=== PATIENT | female | born 1975 | race Two or more races ===

== ENCOUNTER → 2021-05-21 | Emergency (ER) | payer OTHER ==
[~2021-05-21] VITALS: Ht 152.4 cm; Wt 58.1 kg
== END | disposition home or self-care (01) ==
LOC: EMR PED 08:46 → ER 08:51 → EMR PED 08:51
DX: M79.604 Pain in right leg (principal); I80.221 Phlebitis and thrombophlebitis of right popliteal vein; I87.2 Venous insufficiency (chronic) (peripheral)

== ENCOUNTER 2021-05-31 07:09 | Outpatient (CLI) | payer OTHER | END 2021-05-31 07:16 | disposition home or self-care (01) | LOC: LAB 07:09 | DX: N93.8 Other specified abnormal uterine and vaginal bleeding (principal) ==

== ENCOUNTER 2021-07-15 07:36 | Outpatient (CLI) | payer OTHER | END 2021-07-15 07:37 | disposition home or self-care (01) | LOC: LAB 07:36 | PROVIDERS: ATTEND General Practice | DX: Z20.828 Contact with and (suspected) exposure to other viral communicable diseases (principal) ==

== ENCOUNTER 2021-07-22 07:32 | Outpatient (CLI) | payer OTHER | END 2021-07-22 07:33 | disposition home or self-care (01) | LOC: LAB 07:32 | PROVIDERS: ATTEND General Practice | DX: Z20.828 Contact with and (suspected) exposure to other viral communicable diseases (principal) ==

== ENCOUNTER → 2021-07-29 06:30 | Outpatient (CLI) | payer OTHER | END | disposition home or self-care (01) | LOC: LAB 06:30 | PROVIDERS: ATTEND General Practice | DX: Z20.828 Contact with and (suspected) exposure to other viral communicable diseases (principal) ==

== ENCOUNTER 2021-08-05 06:45 | Outpatient (CLI) | payer OTHER | END 2021-08-05 06:50 | disposition home or self-care (01) | LOC: LAB 06:45 | PROVIDERS: ATTEND General Practice | DX: Z20.828 Contact with and (suspected) exposure to other viral communicable diseases (principal) ==

== ENCOUNTER 2021-08-12 06:36 | Outpatient (CLI) | payer OTHER | END 2021-08-12 06:39 | disposition home or self-care (01) | LOC: LAB 06:36 | PROVIDERS: ATTEND General Practice | DX: Z20.828 Contact with and (suspected) exposure to other viral communicable diseases (principal) ==

== ENCOUNTER 2021-08-26 07:26 | Outpatient (CLI) | payer OTHER | END 2021-08-26 07:32 | disposition home or self-care (01) | LOC: LAB 07:26 | DX: Z20.828 Contact with and (suspected) exposure to other viral communicable diseases (principal) ==

== ENCOUNTER → 2021-09-02 06:53 | Outpatient (CLI) | payer OTHER | END | disposition home or self-care (01) | LOC: LAB 06:53 | PROVIDERS: ATTEND General Practice | DX: Z20.828 Contact with and (suspected) exposure to other viral communicable diseases (principal) ==

== ENCOUNTER 2021-09-09 06:50 | Outpatient (CLI) | payer OTHER | END 2021-09-09 06:57 | disposition home or self-care (01) | LOC: LAB 06:50 | PROVIDERS: ATTEND General Practice | DX: Z20.828 Contact with and (suspected) exposure to other viral communicable diseases (principal) ==

== ENCOUNTER 2021-09-16 06:45 | Outpatient (CLI) | payer OTHER | END 2021-09-16 06:52 | disposition home or self-care (01) | LOC: LAB 06:45 | PROVIDERS: ATTEND General Practice | DX: Z20.828 Contact with and (suspected) exposure to other viral communicable diseases (principal) ==

== ENCOUNTER 2021-09-23 07:11 | Outpatient (CLI) | payer OTHER | END 2021-09-23 07:19 | disposition home or self-care (01) | LOC: LAB 07:11 | PROVIDERS: ATTEND General Practice | DX: E11.9 Type 2 diabetes mellitus without complications (principal); E07.9 Disorder of thyroid, unspecified; E78.5 Hyperlipidemia, unspecified; N39.0 Urinary tract infection, site not specified; J06.9 Acute upper respiratory infection, unspecified; Z13.9 Encounter for screening, unspecified; Z20.828 Contact with and (suspected) exposure to other viral communicable diseases ==

== ENCOUNTER 2021-09-25 07:36 | Outpatient (CLI) | payer OTHER | END 2021-09-25 07:45 | disposition home or self-care (01) | LOC: LAB 07:36 | PROVIDERS: ATTEND General Practice | DX: A49.3 Mycoplasma infection, unspecified site (principal); Z20.828 Contact with and (suspected) exposure to other viral communicable diseases; J11.1 Influenza due to unidentified influenza virus with other respiratory manifestations ==

== ENCOUNTER 2021-10-01 10:20 | Outpatient (CLI) | payer OTHER | END 2021-10-01 11:51 | disposition home or self-care (01) | LOC: LAB 10:20 | PROVIDERS: ATTEND General Practice | DX: E07.9 Disorder of thyroid, unspecified (principal); E11.9 Type 2 diabetes mellitus without complications; E78.5 Hyperlipidemia, unspecified; N39.0 Urinary tract infection, site not specified; J06.9 Acute upper respiratory infection, unspecified; Z13.9 Encounter for screening, unspecified ==

== ENCOUNTER 2021-10-07 06:55 | Outpatient (CLI) | payer OTHER | END 2021-10-07 06:58 | disposition home or self-care (01) | LOC: LAB 06:55 | PROVIDERS: ATTEND General Practice | DX: Z20.828 Contact with and (suspected) exposure to other viral communicable diseases (principal) ==

== ENCOUNTER 2021-10-14 06:47 | Outpatient (CLI) | payer OTHER | END 2021-10-14 06:50 | disposition home or self-care (01) | LOC: LAB 06:47 | DX: Z20.828 Contact with and (suspected) exposure to other viral communicable diseases (principal) ==

== ENCOUNTER 2021-10-22 06:54 | Outpatient (CLI) | payer OTHER | END 2021-10-22 15:57 | disposition home or self-care (01) | LOC: LAB 06:54 | PROVIDERS: ATTEND General Practice | DX: Z20.828 Contact with and (suspected) exposure to other viral communicable diseases (principal) ==

== ENCOUNTER 2021-10-28 07:25 | Outpatient (CLI) | payer OTHER | END 2021-10-28 07:30 | disposition home or self-care (01) | LOC: LAB 07:25 | PROVIDERS: ATTEND General Practice | DX: Z20.828 Contact with and (suspected) exposure to other viral communicable diseases (principal) ==

== ENCOUNTER 2021-10-28 07:53 | Outpatient (CLI) | payer OTHER | END 2021-10-28 07:54 | disposition home or self-care (01) | LOC: NUCLEAR 07:53 | PROVIDERS: ATTEND General Practice | DX: M79.604 Pain in right leg (principal); R60.0 Localized edema; Z88.0 Allergy status to penicillin ==

== ENCOUNTER 2021-11-04 06:44 | Outpatient (CLI) | payer OTHER | END 2021-11-04 06:54 | disposition home or self-care (01) | LOC: LAB 06:44 | DX: Z20.828 Contact with and (suspected) exposure to other viral communicable diseases (principal); J02.8 Acute pharyngitis due to other specified organisms ==

== ENCOUNTER 2021-11-04 11:08 | Outpatient (CLI) | payer OTHER | END 2021-11-04 11:21 | disposition home or self-care (01) | LOC: MAMO-SONO 11:08 | DX: N64.4 Mastodynia (principal); D25.9 Leiomyoma of uterus, unspecified ==

== ENCOUNTER 2021-11-11 06:59 | Outpatient (CLI) | payer OTHER | END 2021-11-11 07:08 | disposition home or self-care (01) | LOC: LAB 06:59 | DX: Z20.828 Contact with and (suspected) exposure to other viral communicable diseases (principal) ==

== ENCOUNTER → 2021-11-18 07:00 | Outpatient (CLI) | payer OTHER | END | disposition home or self-care (01) | LOC: LAB 07:00 | DX: Z20.828 Contact with and (suspected) exposure to other viral communicable diseases (principal) ==

== ENCOUNTER 2021-11-19 12:40 | Outpatient (CLI) | payer OTHER | END 2021-11-19 12:47 | disposition home or self-care (01) | LOC: SONOGRAMA 12:40 | PROVIDERS: ATTEND General Practice | DX: R31.9 Hematuria, unspecified (principal); R10.2 Pelvic and perineal pain ==

== ENCOUNTER 2021-11-26 07:20 | Outpatient (CLI) | payer OTHER | END 2021-11-26 07:21 | disposition home or self-care (01) | LOC: LAB 07:20 | PROVIDERS: ATTEND Urology | DX: R31.21 Asymptomatic microscopic hematuria (principal); Z20.822 Contact with and (suspected) exposure to COVID-19 ==

== ENCOUNTER 2021-12-02 06:49 | Outpatient (CLI) | payer OTHER | END 2021-12-02 06:51 | disposition home or self-care (01) | LOC: LAB 06:49 | PROVIDERS: ATTEND Urology | DX: Z20.828 Contact with and (suspected) exposure to other viral communicable diseases (principal) ==

== ENCOUNTER 2021-12-09 06:51 | Outpatient (CLI) | payer OTHER | END 2021-12-09 06:52 | disposition home or self-care (01) | LOC: LAB 06:51 | PROVIDERS: ATTEND Urology | DX: Z20.828 Contact with and (suspected) exposure to other viral communicable diseases (principal) ==

== ENCOUNTER → 2021-12-16 | Outpatient (CLI) | payer OTHER | END | disposition home or self-care (01) | LOC: LAB 07:37 | PROVIDERS: ATTEND General Practice | DX: Z20.828 Contact with and (suspected) exposure to other viral communicable diseases (principal) ==

== ENCOUNTER 2021-12-23 06:42 | Outpatient (CLI) | payer OTHER | END 2021-12-23 06:45 | disposition home or self-care (01) | LOC: LAB 06:42 | PROVIDERS: ATTEND General Practice | DX: Z20.828 Contact with and (suspected) exposure to other viral communicable diseases (principal) ==

== ENCOUNTER 2021-12-30 07:28 | Outpatient (CLI) | payer OTHER | END 2021-12-30 07:35 | disposition home or self-care (01) | LOC: LAB 07:28 | PROVIDERS: ATTEND General Practice | DX: Z20.828 Contact with and (suspected) exposure to other viral communicable diseases (principal) ==

== ENCOUNTER 2022-01-06 07:08 | Outpatient (CLI) | payer OTHER | END 2022-01-06 07:13 | disposition home or self-care (01) | LOC: LAB 07:08 | PROVIDERS: ATTEND General Practice | DX: Z20.828 Contact with and (suspected) exposure to other viral communicable diseases (principal) ==

== ENCOUNTER 2022-01-13 06:43 | Outpatient (CLI) | payer OTHER | END 2022-01-13 07:05 | disposition home or self-care (01) | LOC: LAB 06:43 | PROVIDERS: ATTEND General Practice | DX: Z20.828 Contact with and (suspected) exposure to other viral communicable diseases (principal) ==

== ENCOUNTER 2022-01-20 07:27 | Outpatient (CLI) | payer OTHER | END 2022-01-20 07:36 | disposition home or self-care (01) | LOC: LAB 07:27 | PROVIDERS: ATTEND General Practice | DX: Z20.828 Contact with and (suspected) exposure to other viral communicable diseases (principal) ==

== ENCOUNTER 2022-01-22 07:40 | Outpatient (CLI) | payer OTHER | END 2022-01-22 13:02 | disposition home or self-care (01) | LOC: LAB 07:40 | PROVIDERS: ATTEND Internal Medicine Hematology & Oncology | DX: A49.1 Streptococcal infection, unspecified site (principal); R87.5 Abnormal microbiological findings in specimens from female genital organs ==

== ENCOUNTER 2022-01-28 07:07 | Outpatient (CLI) | payer OTHER | END 2022-01-28 07:45 | disposition home or self-care (01) | LOC: LAB 07:07 | PROVIDERS: ATTEND Internal Medicine Hematology & Oncology | DX: D50.8 Other iron deficiency anemias (principal); R79.9 Abnormal finding of blood chemistry, unspecified; I10 Essential (primary) hypertension; R74.02 Elevation of levels of lactic acid dehydrogenase [LDH]; K76.89 Other specified diseases of liver; C50.919 Malignant neoplasm of unspecified site of unspecified female breast; R97.8 Other abnormal tumor markers; C56.9 Malignant neoplasm of unspecified ovary; R97.1 Elevated cancer antigen 125 [CA 125]; R97.0 Elevated carcinoembryonic antigen [CEA]; E23.0 Hypopituitarism; R89.1 Abnormal level of hormones in specimens from other organs, systems and tissues; D51.3 Other dietary vitamin B12 deficiency anemia; N80.0 Endometriosis of uterus; I80.221 Phlebitis and thrombophlebitis of right popliteal vein; Z20.828 Contact with and (suspected) exposure to other viral communicable diseases ==

== ENCOUNTER 2022-02-03 06:57 | Outpatient (CLI) | payer OTHER | END 2022-02-03 06:58 | disposition home or self-care (01) | LOC: LAB 06:57 | PROVIDERS: ATTEND General Practice | DX: Z20.828 Contact with and (suspected) exposure to other viral communicable diseases (principal) ==

== ENCOUNTER 2022-02-05 08:00 | Outpatient (CLI) | payer OTHER | END 2022-02-05 08:05 | disposition home or self-care (01) | LOC: PPH VACUNA 08:00 | PROVIDERS: ATTEND Emergency Medicine Pediatric Emergency Medicine | DX: Z23 Encounter for immunization (principal) ==

== ENCOUNTER 2022-02-10 06:24 | Outpatient (CLI) | payer OTHER | END 2022-02-10 06:25 | disposition home or self-care (01) | LOC: LAB 06:24 | PROVIDERS: ATTEND General Practice | DX: Z20.828 Contact with and (suspected) exposure to other viral communicable diseases (principal) ==

== ENCOUNTER 2022-02-17 07:11 | Outpatient (CLI) | payer OTHER | END 2022-02-17 07:16 | disposition home or self-care (01) | LOC: LAB 07:11 | PROVIDERS: ATTEND General Practice | DX: Z20.828 Contact with and (suspected) exposure to other viral communicable diseases (principal) ==

== ENCOUNTER 2022-02-18 10:36 | Outpatient (CLI) | payer OTHER | END 2022-02-18 10:43 | disposition home or self-care (01) | LOC: TOM 10:36 | PROVIDERS: ATTEND Obstetrics & Gynecology | DX: R19.00 Intra-abdominal and pelvic swelling, mass and lump, unspecified site (principal); R19.07 Generalized intra-abdominal and pelvic swelling, mass and lump | CPT/HCPCS: 72197 ==

== ENCOUNTER 2022-02-24 07:02 | Outpatient (CLI) | payer OTHER | END 2022-02-24 07:07 | disposition home or self-care (01) | LOC: LAB 07:02 | PROVIDERS: ATTEND General Practice | DX: Z20.828 Contact with and (suspected) exposure to other viral communicable diseases (principal) ==

== ENCOUNTER 2022-03-03 07:01 | Outpatient (CLI) | payer OTHER | END 2022-03-03 07:07 | disposition home or self-care (01) | LOC: LAB 07:01 | PROVIDERS: ATTEND General Practice | DX: Z20.828 Contact with and (suspected) exposure to other viral communicable diseases (principal) ==

== ENCOUNTER 2022-06-02 12:46 | Outpatient (CLI) | payer OTHER | END 2022-06-02 12:47 | disposition home or self-care (01) | LOC: LAB 12:46 | PROVIDERS: ATTEND Internal Medicine Gastroenterology | DX: Z11.52 Encounter for screening for COVID-19 (principal); Z20.822 Contact with and (suspected) exposure to COVID-19; Z20.828 Contact with and (suspected) exposure to other viral communicable diseases ==

== ENCOUNTER 2022-07-01 06:58 | Outpatient (CLI) | payer OTHER | END 2022-07-01 07:00 | disposition home or self-care (01) | LOC: LAB 06:58 | PROVIDERS: ATTEND Internal Medicine Hematology & Oncology | DX: D50.8 Other iron deficiency anemias (principal); R79.9 Abnormal finding of blood chemistry, unspecified; I10 Essential (primary) hypertension; R74.02 Elevation of levels of lactic acid dehydrogenase [LDH]; K76.89 Other specified diseases of liver; D68.59 Other primary thrombophilia; D68.61 Antiphospholipid syndrome; D68.51 Activated protein C resistance; D51.3 Other dietary vitamin B12 deficiency anemia; N80.00 Endometriosis of the uterus, unspecified; I80.221 Phlebitis and thrombophlebitis of right popliteal vein; D68.62 Lupus anticoagulant syndrome; D68.312 Antiphospholipid antibody with hemorrhagic disorder; E72.11 Homocystinuria ==

== ENCOUNTER → 2022-07-21 | Outpatient (CLI) | payer OTHER | END | disposition home or self-care (01) | LOC: TOM 10:04 | PROVIDERS: ATTEND Internal Medicine Gastroenterology | DX: K56.600 Partial intestinal obstruction, unspecified as to cause (principal); Z86.010 Personal history of colon polyps ==

== ENCOUNTER → 2023-01-22 | Outpatient (CLI) | payer OTHER | END | disposition home or self-care (01) | LOC: PPH VACUNA | PROVIDERS: ATTEND Emergency Medicine Pediatric Emergency Medicine | DX: Z23 Encounter for immunization (principal) ==

== ENCOUNTER → 2023-02-13 07:48 | Outpatient (CLI) | payer OTHER ==
[2023-02-13 09:46] LABS: HEMATOCRIT 36.9 % (36.0-45.00); HEMOGLOBIN 12.4 g/dL (12.0-15.00); MEAN CELL VOLUME 83.4 fL (80.00-100.00); MEAN CORPUSCULAR HEMOGLOBIN 28.1 pg (27.00-32.0); MEAN CORPUSCULAR HGB CONC 33.7 g/dl (32.0-36.0); PLATELET COUNT 217 K/uL (150-450); RED BLOOD COUNT 4.42 M/uL (4.00-6.00); RED CELL DISTRIBUTION WIDTH 14.1 % (11.5-14.5)
[2023-02-13 10:21] LABS: ALBUMIN 3.6 gm/dL (3.4-5.0); BILIRUBIN TOTAL 0.28 mg/dL (0.3-1.2); BILIRUBIN,CONJUGATED 0.1 mg/dL (0.0-0.2); CALCIUM 9.9 mg/dL (8.5-10.1); CREATININE SERUM 0.67 mg/dL (0.55-1.02); GFR 93.94; GLOBULINA 3.8 G/DL (2.4-3.5); POTASSIUM 4.48 mEq/L (3.5-5.1); TOTAL PROTEIN 7.4 gm/dL (6.4-8.2)
[2023-02-13 11:20] LABS: VITAMIN D3 25 HYDROXY 38.71 ng/ml (30-120)
== END | disposition home or self-care (01) ==
LOC: LAB 07:48
PROVIDERS: ATTEND General Practice
DX: Z00.00 Encounter for general adult medical examination without abnormal findings (principal); E78.5 Hyperlipidemia, unspecified; E55.9 Vitamin D deficiency, unspecified; N39.0 Urinary tract infection, site not specified; R42 Dizziness and giddiness; R10.9 Unspecified abdominal pain

== ENCOUNTER 2023-04-03 09:54 | Outpatient (CLI) | payer OTHER | END 2023-04-03 09:55 | disposition home or self-care (01) | LOC: NUCLEAR 09:54 | PROVIDERS: ATTEND Internal Medicine Hematology & Oncology | DX: I80.221 Phlebitis and thrombophlebitis of right popliteal vein (principal); I70.213 Atherosclerosis of native arteries of extremities with intermittent claudication, bilateral legs; D51.3 Other dietary vitamin B12 deficiency anemia; N80.00 Endometriosis of the uterus, unspecified ==

== ENCOUNTER → 2023-06-19 07:45 | Outpatient (CLI) | payer OTHER ==
[2023-06-19 08:52] LABS: PH,URINE 5.5 (5.0-8.0); URINE APPEARANCE Clear; URINE BILIRRUBIN Negative (NEGATIVE); URINE BLOOD Small; URINE COLOR Yellow; URINE GLUCOSE Negative (NEGATIVE); URINE LEUKOCYTE Negative; URINE NITRATE Negative; URINE PROTEIN Negative (NEGATIVE); URINE UROBILINOGEN 0.2 E.U./dl
[2023-06-19 08:56] LABS: HEMATOCRIT 35.6 % (36.0-45.00); MEAN CORPUSCULAR HEMOGLOBIN 28.9 pg (27.00-32.0); MEAN CORPUSCULAR HGB CONC 33.7 g/dl (32.0-36.0); PLATELET COUNT 236 K/uL (150-450); RED BLOOD COUNT 4.14 M/uL (4.00-6.00); RED CELL DISTRIBUTION WIDTH 13.4 % (11.5-14.5); URINE EPITHELIAL CELLS 2.6 uL (0.0-38.8); URINE RBC 29.6 uL (0.0-20.8); URINE WBC 2.3 uL (0.0-23.2)
[2023-06-19 09:25] LABS: ALBUMIN 3.4 gm/dL (3.4-5.0); ALKALINE PHOSPHATASE 138 U/L (50-136); ALT/SGPT 35 U/L (12-78); ANION GAP 7 (10.0-20.0); AST/SGOT 19 U/L (15-37); BILIRUBIN TOTAL 0.32 mg/dL (0.3-1.2); BILIRUBIN,CONJUGATED < 0.10 mg/dL (0.0-0.2); BILIRUBIN,UNCONJUGATED 0.22 mg/dL (0.0-0.6); BLOOD UREA NITROGEN 15 mg/dL (7-18); BUN CREA RATIO 22 (7.0-25.0); CALCIUM 9.6 mg/dL (8.5-10.1); CARBON DIOXIDE 32 mEq/L (21-32); CHLORIDE 107 mmol/L (98-107); CHOL HDL RATIO 2.4 (0-5.0); CHOLESTEROL 201 mg/dL (0-200); CREATININE SERUM 0.68 mg/dL (0.55-1.02); GFR 92.35; GLOBULINA 3.6 G/DL (2.4-3.5); GLUCOSE FASTING 100 mg/dL (65-100); HDL 83 mg/dl (40-60); LDL 104 mg/dl (0-130); OSMOLALITY SERUM 284 MOSM/KG (275-295); POTASSIUM 4.24 mEq/L (3.5-5.1); SODIUM 142 mmol/L (136-145); T3 UPTAKE 31 % (30-39); T4 TOTAL 9.27 UG/DL (4.8-13.9); TRIGLYCERIDES 72 mg/dL (0-150); TSH 0.859 uIU/mL (0.358-3.74); VLDL 14 (0-39)
[2023-06-19 15:01] LABS: T3 TOTAL 1.05 ng/ml (0.846-2.02)
== END | disposition home or self-care (01) ==
LOC: LAB 07:45
PROVIDERS: ATTEND General Practice
DX: I10 Essential (primary) hypertension (principal); E78.5 Hyperlipidemia, unspecified; E55.9 Vitamin D deficiency, unspecified; N39.0 Urinary tract infection, site not specified; R42 Dizziness and giddiness; R10.9 Unspecified abdominal pain; Z00.00 Encounter for general adult medical examination without abnormal findings

== ENCOUNTER 2023-06-19 08:13 | Outpatient (CLI) | payer OTHER | END 2023-06-19 08:17 | disposition home or self-care (01) | LOC: RAD 08:13 | PROVIDERS: ATTEND General Practice | DX: M54.2 Cervicalgia (principal) ==

== ENCOUNTER 2023-11-19 08:39 | Outpatient (CLI) | payer OTHER ==
[2023-11-19 09:55] LABS: ALT/SGPT 27 U/L (12-78); AST/SGOT 18 U/L (15-37)
== END 2023-11-19 08:41 | disposition home or self-care (01) ==
LOC: LAB 08:39
DX: B35.1 Tinea unguium (principal)

== ENCOUNTER 2023-12-14 08:36 | Emergency (ER) | payer OTHER ==
[~2023-12-14] VITALS: Ht 160 cm; Wt 59.9 kg
[2023-12-14] MEDS ORDERED: PROPANOLOL (08:48)
[2023-12-14] MEDS ORDERED: PLAVIX75 MG (08:48)
[2023-12-14] MEDS ORDERED: KETOROLAC TROMETHAMINE 15 MG VIAL IM STA (09:12)
[2023-12-14] MEDS ORDERED: KETOROLAC TROMETHAMINE 30 MG VIAL ONE (09:19)
[2023-12-14] MEDS ORDERED: ADVIL DUAL ACT1 EACH PO (12:12)
== END 2023-12-14 12:23 | disposition home or self-care (01) ==
LOC: ER 08:36
DX: S93.402A Sprain of unspecified ligament of left ankle, initial encounter (principal); X58.XXXA Exposure to other specified factors, initial encounter; Y93.89 Activity, other specified; Y92.89 Other specified places as the place of occurrence of the external cause; Y99.9 Unspecified external cause status; Z88.0 Allergy status to penicillin; Z91.018 Allergy to other foods

== ENCOUNTER 2024-01-12 14:12 | Outpatient (CLI) | payer OTHER ==
[~2024-01-12 14:12] MED LIST: ADVIL DUAL ACT1 EACH PO; PLAVIX75 MG; PROPANOLOL
== END 2024-01-12 14:14 | disposition home or self-care (01) ==
LOC: LAB 14:12
PROVIDERS: ATTEND Preventive Medicine Occupational Medicine
DX: A49.1 Streptococcal infection, unspecified site (principal); A02.9 Salmonella infection, unspecified; K62.89 Other specified diseases of anus and rectum

== ENCOUNTER → 2024-01-27 07:07 | Outpatient (CLI) | payer OTHER ==
[2024-01-27 08:10] LABS: ALT/SGPT 28 U/L (12-78); AST/SGOT 20 U/L (15-37)
== END | disposition home or self-care (01) ==
LOC: LAB 07:07
DX: B35.1 Tinea unguium (principal)

== ENCOUNTER 2024-04-15 11:52 | Outpatient (CLI) | payer OTHER | END 2024-04-15 12:05 | disposition home or self-care (01) | LOC: PPH VACUNA 11:52 | PROVIDERS: ATTEND Emergency Medicine Pediatric Emergency Medicine | DX: Z23 Encounter for immunization (principal) ==

== ENCOUNTER 2024-04-18 09:03 | Outpatient (CLI) | payer OTHER | END 2024-04-18 09:07 | disposition home or self-care (01) | LOC: LAB 09:03 | DX: J11.1 Influenza due to unidentified influenza virus with other respiratory manifestations (principal); Z20.828 Contact with and (suspected) exposure to other viral communicable diseases ==

== ENCOUNTER → 2024-04-22 | Emergency (ER) | payer OTHER ==
[~2024-04-22] VITALS: Ht 160 cm; Wt 59.9 kg
[2024-04-22 15:39] LABS: HEMATOCRIT 36.7 % (36.0-45.00); HEMOGLOBIN 12.1 g/dL (12.0-15.00); MEAN CELL VOLUME 84.7 fL (80.00-100.00); MEAN CORPUSCULAR HEMOGLOBIN 27.9 pg (27.00-32.0); PLATELET COUNT 220 K/uL (150-450); RED BLOOD COUNT 4.33 M/uL (4.00-6.00); RED CELL DISTRIBUTION WIDTH 13.3 % (11.5-14.5)
[2024-04-22 15:59] LABS: INR 0.96; PROTHROMBIN TIME 10.5 SECONDS (9.0-11.5)
[2024-04-22 16:04] LABS: D DIMER 0.23 MG/L; PARTIAL THROMBOPLASTIN TIME 26.6 SECONDS (22.0-34.0)
== END | disposition home or self-care (01) ==
LOC: ER 12:28
PROVIDERS: Nurse Practitioner Family
DX: M79.605 Pain in left leg (principal); M26.629 Arthralgia of temporomandibular joint, unspecified side; Z20.822 Contact with and (suspected) exposure to COVID-19; Z88.0 Allergy status to penicillin; Z91.018 Allergy to other foods

== ENCOUNTER 2024-04-25 07:31 | Emergency (ER) | payer OTHER ==
[~2024-04-25] VITALS: Ht 160 cm; Wt 59.9 kg
[2024-04-25 12:03] LABS: HEMATOCRIT 36.7 % (36.0-45.00); HEMOGLOBIN 12.5 g/dL (12.0-15.00); MEAN CELL VOLUME 82.9 fL (80.00-100.00); MEAN CORPUSCULAR HEMOGLOBIN 28.2 pg (27.00-32.0); MEAN CORPUSCULAR HGB CONC 34.1 g/dl (32.0-36.0); PLATELET COUNT 236 K/uL (150-450); RED BLOOD COUNT 4.43 M/uL (4.00-6.00); RED CELL DISTRIBUTION WIDTH 13.8 % (11.5-14.5)
[2024-04-25 12:15] LABS: D DIMER 0.23 MG/L; INR 0.99; PARTIAL THROMBOPLASTIN TIME 26.6 SECONDS (22.0-34.0); PROTHROMBIN TIME 10.8 SECONDS (9.0-11.5)
== END 2024-04-25 14:34 | disposition home or self-care (01) ==
LOC: ER 07:33
PROVIDERS: General Practice
DX: M79.605 Pain in left leg (principal); Z88.0 Allergy status to penicillin; Z91.018 Allergy to other foods; Z86.72 Personal history of thrombophlebitis

== ENCOUNTER 2024-08-18 10:52 | Outpatient (CLI) | payer OTHER | END 2024-08-18 11:16 | disposition home or self-care (01) | LOC: MRI 10:52 | PROVIDERS: ATTEND Neuromusculoskeletal Medicine & OMM | DX: I72.9 Aneurysm of unspecified site (principal); I65.1 Occlusion and stenosis of basilar artery; I65.09 Occlusion and stenosis of unspecified vertebral artery; I65.29 Occlusion and stenosis of unspecified carotid artery; Q28.2 Arteriovenous malformation of cerebral vessels; R41.3 Other amnesia; G43.009 Migraine without aura, not intractable, without status migrainosus | CPT/HCPCS: 70544; 70553 ==

== ENCOUNTER → 2024-09-28 07:44 | Outpatient (CLI) | payer OTHER ==
[2024-09-28 08:40] LABS: HEMATOCRIT 37.3 % (36.0-45.00); HEMOGLOBIN 12.7 g/dL (12.0-15.00); MEAN CELL VOLUME 83.2 fL (80.00-100.00); MEAN CORPUSCULAR HEMOGLOBIN 28.2 pg (27.00-32.0); MEAN CORPUSCULAR HGB CONC 33.9 g/dl (32.0-36.0); PLATELET COUNT 231 K/uL (150-450); RED BLOOD COUNT 4.49 M/uL (4.00-6.00); RED CELL DISTRIBUTION WIDTH 14.2 % (11.5-14.5)
[2024-09-28 08:44] LABS: ERYTHROCYTE SEDIMENTATION RATE 17 mm/hr
[2024-09-28 11:08] LABS: ALBUMIN 3.6 gm/dL (3.4-5.0); ALKALINE PHOSPHATASE 126 U/L (50-136); ALT/SGPT 40 U/L (12-78); ANION GAP 6 (10.0-20.0); AST/SGOT 25 U/L (15-37); BILIRUBIN TOTAL 0.27 mg/dL (0.3-1.2); BLOOD UREA NITROGEN 17 mg/dL (7-18); BUN CREA RATIO 25 (7.0-25.0); CALCIUM 9.3 mg/dL (8.5-10.1); CARBON DIOXIDE 31 mEq/L (21-32); CHLORIDE 110 mmol/L (98-107); CHOL HDL RATIO 2.7 (0-5.0); CHOLESTEROL 234 mg/dL (0-200); CREATININE SERUM 0.67 mg/dL (0.55-1.02); GFR 93.16; GLOBULINA 3.6 G/DL (2.4-3.5); GLUCOSE FASTING 103 mg/dL (65-100); HDL 88 mg/dl (40-60); LDL 135 mg/dl (0-130); OSMOLALITY SERUM 285 MOSM/KG (275-295); PHOSPHOKINASE CREATININE 82 U/L (26-192); POTASSIUM 4.84 mEq/L (3.5-5.1); SODIUM 142 mmol/L (136-145); T4 FREE 0.96 NG/ML (0.76-1.46); TOTAL PROTEIN 7.2 gm/dL (6.4-8.2); TRIGLYCERIDES 56 mg/dL (0-150); TSH 0.738 uIU/mL (0.358-3.74); VLDL 11 (0-39)
[2024-09-28 11:32] LABS: C-REACTIVE PROTEIN < 0.29 MG/DL (0.00-0.29)
[2024-09-29 12:12] LABS: HOMOCYSTEINE 6.8 umol/L (0.0-14.5)
== END | disposition home or self-care (01) ==
LOC: LAB 07:44
PROVIDERS: ATTEND Neuromusculoskeletal Medicine & OMM
DX: R41.89 Other symptoms and signs involving cognitive functions and awareness (principal); R41.3 Other amnesia; G30.1 Alzheimer's disease with late onset; E03.9 Hypothyroidism, unspecified; F03.90 Unspecified dementia, unspecified severity, without behavioral disturbance, psychotic disturbance, mood disturbance, and anxiety; E78.00 Pure hypercholesterolemia, unspecified; E78.1 Pure hyperglyceridemia; E22.1 Hyperprolactinemia; R42 Dizziness and giddiness; D64.9 Anemia, unspecified; R51.9 Headache, unspecified; M06.9 Rheumatoid arthritis, unspecified

== ENCOUNTER 2024-10-20 11:10 | Emergency (ER) | payer OTHER ==
[~2024-10-20] VITALS: Ht 160 cm; Wt 56.7 kg
[2024-10-20] MEDS ORDERED: ONDANSETRON HCL 2 MG/ML VIAL IV ONE (11:30)
[2024-10-20] MEDS ORDERED: FAMOtidine 10 MG/ML (4ML VIAL) IV ONE (11:30)
[2024-10-20] MEDS ORDERED: 0.9 % SODIUM CHLORIDE 1,000 ML IV ONE (11:30)
[2024-10-20] MEDS ORDERED: ONDANSETRON HCL 2 MG/ML VIAL ONE (11:32)
[2024-10-20] MEDS ORDERED: FAMOTIDINE/PF 20 MG/2 ML VIAL ONE (11:32)
[2024-10-20 12:41] LABS: BASO % 0.6 % (0.1-1.2); EOS # 0.04 (0.04-0.54); EOS % 0.8 % (0.7-7.0); HEMATOCRIT 35.1 % (34.1-44.9); HEMOGLOBIN 11.7 g/dL (11.2-15.7); LYMPH # 1.88 (1.18-3.74); LYMPH % 38.3 % (19.3-53.1); MEAN CORPUSCULAR HEMOGLOBIN 27.2 pg (25.6-32.2); MONO # 0.41 (0.24-0.82); MONO % 8.4 % (4.7-12.5); NEUT # 2.53 (1.56-6.13); NEUT % 51.5 % (34.0-71.1); PLATELET COUNT 218 K/uL (163-369); RED CELL DISTRIBUTION WIDTH 13.9 % (11.6-14.4)
[2024-10-20 12:58] LABS: INR 1.02; PARTIAL THROMBOPLASTIN TIME 26.7 SECONDS (22.0-34.0); PROTHROMBIN TIME 11.1 SECONDS (9.0-11.5)
[2024-10-20 13:08] LABS: ALBUMIN 3.3 gm/dL (3.4-5.0); BILIRUBIN TOTAL 0.25 mg/dL (0.3-1.2); CALCIUM 9.2 mg/dL (8.5-10.1); CREATININE SERUM 0.69 mg/dL (0.55-1.02); GFR 90.05; GLOBULINA 3.7 G/DL (2.4-3.5); POTASSIUM 4.28 mEq/L (3.5-5.1)
[2024-10-20 13:22] LABS: PH,URINE 6.5 (5.0-8.0); URINE APPEARANCE Clear; URINE BILIRRUBIN Negative (NEGATIVE); URINE BLOOD NHT; URINE COLOR Yellow; URINE GLUCOSE Negative (NEGATIVE); URINE KETONE Negative (NEGATIVE); URINE LEUKOCYTE Small; URINE NITRATE Negative; URINE PROTEIN Negative (NEGATIVE); URINE UROBILINOGEN 0.2 E.U./dl
[2024-10-20 13:27] LABS: URINE RBC 55.8 uL (0.0-20.8); URINE WBC 29.2 uL (0.0-23.2)
[2024-10-20 13:37] LABS: URINE CAST 0.44 uL (0.0-1.40)
[2024-10-20 14:00] LABS: COVID-19 AG NEGATIVE (NEGATIVE); INFLUENZA A AG NEGATIVE (NEGATIVE)
== END 2024-10-20 16:32 | disposition home or self-care (01) ==
LOC: ER 11:10
PROVIDERS: General Practice
DX: R07.9 Chest pain, unspecified (principal); R06.02 Shortness of breath; Z88.0 Allergy status to penicillin; Z91.018 Allergy to other foods; G43.809 Other migraine, not intractable, without status migrainosus; Z86.711 Personal history of pulmonary embolism

== ENCOUNTER 2024-12-05 10:17 | Outpatient (CLI) | payer OTHER | END 2024-12-05 10:20 | disposition home or self-care (01) | LOC: LAB 10:17 | DX: R07.0 Pain in throat (principal); R19.5 Other fecal abnormalities ==

== ENCOUNTER 2024-12-28 14:30 | Outpatient (CLI) | payer OTHER | END 2024-12-29 06:34 | disposition home or self-care (01) | LOC: LAB 14:30 | DX: R07.0 Pain in throat (principal); R19.5 Other fecal abnormalities ==

== ENCOUNTER 2025-03-07 11:39 | Outpatient (CLI) | payer OTHER | END 2025-03-07 11:52 | disposition home or self-care (01) | LOC: MAMO-SONO 11:39 | PROVIDERS: ATTEND Obstetrics & Gynecology | DX: N63 Unspecified lump in breast (principal); N64.59 Other signs and symptoms in breast; N64.9 Disorder of breast, unspecified; R10.20 Pelvic and perineal pain unspecified side ==

== ENCOUNTER 2025-03-17 10:08 | Outpatient (CLI) | payer OTHER | END 2025-03-17 10:18 | disposition home or self-care (01) | LOC: PPH VACUNA 10:08 | PROVIDERS: ATTEND Emergency Medicine Pediatric Emergency Medicine | DX: Z23 Encounter for immunization (principal) ==